=== PATIENT | male | born 1960 | race Caucasian/White ===

== ENCOUNTER 2018-12-22 07:34 | Emergency (ER) | payer OTHER ==
--- NOTE | 2018-12-22 08:19 | EDM.PDOC ---
ED HPI GENERAL MEDICAL PROBLEM - General Chief Complaint: Lower Extremity Injury/Pain Stated Complaint: HIP PAIN Time Seen by Provider: 12/22/18 08:06 Source of Information: Reports: Patient, Family, Old Records, RN Notes Reviewed History Limitations: Reports: No Limitations - History of Present Illness INITIAL COMMENTS - FREE TEXT/NARRATIVE: 58-year-old gentleman presents to emergency department today complaint of left hip pain states that he has had pain in his hip for the last several months does follow with orthopedics does have a known history of degenerative joint disease recently received bilateral hip injections of steroids the right hip seems to be doing well however he has had increased pain in the left hip. Last couple days no fevers no rash, he has been using ibuprofen every 8 hours but it does not help with pain. He is scheduled to have bilateral knee surgery done this fall he has another issue in that he has a known cerumen impaction of the right ear it would like that flushed Left Hip Pain Score (Numeric/FACES): 3 - Related Data Allergies Allergy/AdvReac Type Severity Reaction Status Date / Time No Known Allergies Allergy Verified 12/22/18 07:49 Home Meds: Home Meds Allopurinol [Zyloprim] 300 mg PO DAILY 10/19/18 [History] Aspirin [Adult Low Dose Aspirin EC] 81 mg PO DAILY 10/19/18 [History] Betamethasone Dipropionate [Diprolene AF 0.05% Crm] 1 film TOP BID 10/19/18 [ History] Indomethacin [Indocin] 50 mg PO TID PRN 10/19/18 [History] Insulin Detemir [Levemir] 25 unit SQ BID 10/19/18 [History] Losartan [Cozaar] 50 mg PO DAILY 10/19/18 [History] Simvastatin [Zocor] 20 mg PO BEDTIME 10/19/18 [History] glipiZIDE [Glucotrol] 5 mg PO BID 10/19/18 [History] metFORMIN HCl [Metformin HCl] 1,000 mg PO BID 10/19/18 [History] Ibuprofen 400 mg PO BID 11/19/18 [History] Past Medical History HEENT History: Reports: Impaired Vision Cardiovascular History: Reports: High Cholesterol, Hypertension Musculoskeletal History: Reports: Arthritis, Gout Endocrine/Metabolic History: Reports: Diabetes, Type II, Obesity/BMI 30+ - Past Surgical History Head Surgeries/Procedures: Reports: None Cardiovascular Surgical History: Reports: None Endocrine Surgical History: Reports: None Musculoskeletal Surgical History: Reports: None Dermatological Surgical History: Reports: None Social & Family History - Tobacco Use Smoking Status *Q: Never Smoker Second Hand Smoke Exposure: No - Caffeine Use Caffeine Use: Reports: Coffee - Recreational Drug Use Recreational Drug Use: No Review of Systems - Review of Systems Review Of Systems: See Below Ears: Reports: Pain Respiratory: Reports: No Symptoms Cardiovascular: Reports: No Symptoms GI/Abdominal: Reports: No Symptoms Musculoskeletal: Reports: Joint Pain (Left hip pain) Neurological: Reports: No Symptoms ED EXAM, GENERAL - Physical Exam Exam: See Below Exam Limited By: No Limitations General Appearance: Alert, WD/WN, No Apparent Distress Ears: Normal External Exam, Normal Canal, Other (Left ear is blocked by cerumen cannot visualize the) Respiratory/Chest: No Respiratory Distress ED TRAUMA EXTREMITY PROCEDURES - Additional/Other Procedure(s) Other (Free Text) Procedure(s): Preoperative diagnosis cerumen impaction Postoperative diagnosis same Surgeon David OfficerMD Verbal consent was obtained prior to procedure risks and benefits were discussed patient is in agreement and wishes to proceed. Anesthesia none Estimated blood loss none Specimens large chunk cerumen Summary procedure: Timeout was performed prior to initiation procedure identified correct site, correct patient and correct procedure. Combination of irrigation with ear curet was used to remove the impaction Complications none apparent Disposition discharged home Course - Vital Signs Last Recorded V/S: Last Vital Signs Temp 95.4 F 12/22/18 07:51 Pulse 76 12/22/18 07:51 Resp 15 12/22/18 07:51 BP 140/83 12/22/18 07:51 Pulse Ox 95 12/22/18 07:51 - Orders/Labs/Meds Orders: Active Orders 24 hr Category Date Time Status Ear Irrigation [RC] ASDIRECTED Care 12/22/18 08:13 Active Departure - Departure Time of Disposition: 08:21 Disposition: Home, Self-Care 01 Condition: Fair Clinical Impression: Chronic left hip pain, Impacted cerumen of right ear Degenerative joint disease (DJD) of hip Qualifiers: Osteoarthritis type: primary Laterality: left Qualified Code(s): M16.12 - Unilateral primary osteoarthritis, left hip - Discharge Information Referrals: Bandar Royal MD [Primary Care Provider] - Forms: ED Department Discharge Additional Instructions: Continue with ibuprofen as baseline pain control, use tramadol for breakthrough pain, please follow-up with your orthopedic provider, call return to the emergency department worsening of symptoms - My Orders Last 24 Hours: My Active Orders 12/22/18 08:13 Ear Irrigation [RC] ASDIRECTED - Assessment/Plan Last 24 Hours: My Active Orders 12/22/18 08:13 Ear Irrigation [RC] ASDIRECTED Plan: Assessment Acuity = chronic Site and laterality = left hip pain, right cerumen impaction Etiology = degenerative joint disease, excessive cerumen buildup] Manifestations = none Location of injury = Home Lab values = none Plan Prescription for him for tramadol 50 mg 1 tab by mouth 3 times a day when necessary total #15, successful with ear irrigation follow-up with orthopedics on next week for further evaluation This note was dictated using [employer] voice recognition software please call with any questions on syntax or grammar.
== END 2018-12-22 09:07 | disposition home or self-care (01) ==
LOC: JP.ED 07:34
DX: H61.21 Impacted cerumen, right ear (principal); M16.12 Unilateral primary osteoarthritis, left hip; I10 Essential (primary) hypertension; E11.9 Type 2 diabetes mellitus without complications; E78.00 Pure hypercholesterolemia, unspecified; Z79.84 Long term (current) use of oral hypoglycemic drugs; Z79.899 Other long term (current) drug therapy; Z79.82 Long term (current) use of aspirin
CPT/HCPCS: 69210; 99283

== ENCOUNTER 2020-06-09 05:41 | Day surgery (SDC) | payer OTHER ==
[2020-06-09] MEDS ORDERED: Lactated Ringers 1,000 ML IV SCH (07:00)
[2020-06-09] MEDS ORDERED: fentaNYL 100 MCG/2 ML SDV ONE (07:08)
[2020-06-09] MEDS ORDERED: Midazolam 1 MG/ML 2 ML SDV ONE (07:08)
[2020-06-09] MEDS ORDERED: Propofol 200 MG/20 ML SDV ONE ×2 (07:08→07:28)
[2020-06-09] MEDS ORDERED: Meropenem 500 MG in Sodium Chloride 0.9% 50 ML IV ONE (07:15)
--- NOTE | 2020-06-26 15:38 | OR ---
DATE OF PROCEDURE: 06/09/2020 SURGEON: Walter Delaney MD PREOPERATIVE DIAGNOSIS: Indication for screening colonoscopy. POSTOPERATIVE DIAGNOSES: 1. Single small polyp in the mid sigmoid colon. 2. Left colonic diverticulosis. 3. Relatively poor colonoscopy preparation. OPERATIVE PROCEDURES: 1. Flexible colonoscopy. 2. Polypectomy by snare technique. ANESTHESIA: IV sedation. INDICATIONS FOR PROCEDURE: A 60-year-old presenting for a screening colonoscopy. The plan will be to proceed with a colonoscopy with biopsies and polypectomy as indicated. The potential risks, including bleeding and perforation, were discussed, and the patient wishes to proceed. DETAILS OF PROCEDURE: The patient was taken to the operating room and placed in a left lateral decubitus position. IV sedation was administered, after which the initial digital rectal exam was performed and was unremarkable. A colonoscope was then passed into the rectum with retroflexion revealing uncomplicated hemorrhoidal columns. The scope was then passed eventually to the level of the cecum. The prep was fairly poorly with there being quite a bit of large amount of stool. The stool that was present was liquid, so a large extent of this could be evacuated, but certainly, small polyps or other pathology could be easily missed with this examination. The patient had left colonic diverticulosis, which was otherwise unremarkable. At 40 cm from the dentate line, the patient had a single small roughly 3 mm polyp present. This was encircled at its base and removed by means of cautery snare technique, and the tissue was then sent for histologic evaluation. Good hemostasis at the polypectomy site was confirmed. The scope was then withdrawn, and no additional pathology was seen, and the procedure was then concluded. RECOMMENDATION: Would be to repeat the colonoscopy in 2 years, relatively shorter than the usual timeframe, would be related to the relatively poor prep. Walter Delaney MD /[id number]
== END 2020-06-09 09:28 | disposition home or self-care (01) ==
LOC: JP.SDS 05:41
PROVIDERS: ATTEND Surgery
DX: D12.5 Benign neoplasm of sigmoid colon (principal); Z12.11 Encounter for screening for malignant neoplasm of colon; K57.30 Diverticulosis of large intestine without perforation or abscess without bleeding; I10 Essential (primary) hypertension; E11.9 Type 2 diabetes mellitus without complications
CPT/HCPCS: 45385; 88305; J2185; J2250; J2704; J3010; J7050; J7120